=== PATIENT | male | born 1935 | race Two or more races ===

== ENCOUNTER 2017-11-18 16:21 | Observation (INO) | payer OTHER ==
[~2017-11-18] VITALS: Ht 175.3 cm; Wt 90.7 kg
[~2017-11-18 16:21] MED LIST: ASPI-231 PO; ATOR20TA50 PO; CAR3125T PO; INSULIN; METFORMIN; NITR0.4S29 SL
[2017-11-18 17:41] LABS: Basophils # (auto) 0 uL; Eosinophils # (auto) 0 uL; Lymphocytes # (auto) 0.4 uL
[2017-11-18 17:43] LABS: Basophils % (auto) 0.4 % (0.0-2.0); Hematocrit 31.9 % (41.0-53.0); Hemoglobin 10.3 g/dL (13.5-17.5); Lymphocytes % (auto) 5.6 % (10.0-50.0); Mean Corpuscular Hemoglobin 23.9 pg (28.0-32.0); Mean Corpuscular Hgb Conc. 32.2 g/dL (32.0-36.0); Mean Corpuscular Volume 74.2 fL (80.0-100.0); Monocytes # (auto) 0.9 uL; Monocytes % (auto) 12.2 % (0.0-12.0); Neutrophils # (auto) 6.3 uL; Neutrophils % (auto) 81.8 % (37.0-80.0); Platelet Count (auto) 177 10^3/uL (140-450); White Blood Cell 7.7 10^3/uL (4.4-10.8)
[2017-11-18 18:03] LABS: Albumin 3.1 g/dL (3.4-5.0); BUN/Creatinine Ratio 20.8; Bilirubin, Total 1.1 mg/dL (0.2-1.0); Calcium 9.1 mg/dL (8.5-10.1); Magnesium 2.2 mg/dL (1.6-2.6); Potassium 3.1 mmol/L (3.5-5.1); Total Protein 7.3 g/dL (6.4-8.2)
[2017-11-18] MEDS ORDERED: SODIUM CHLORIDE 0.9% 1,000 ML IVB ONE (19:38)
[2017-11-18] MEDS ORDERED: MORPHINE SULFATE INJECTION 1 ML ONE (19:43)
[2017-11-18] MEDS ORDERED: ONDANSETRON HCL 4 MG/2 ML VIAL IV ONE (19:45)
[2017-11-18] MEDS ORDERED: MORPHINE SULFATE 4 MG/ML SYR/VIAL IV ONE (19:45)
[2017-11-18] MEDS ORDERED: POTASSIUM CHL 10% (20 MEQ/15ML) 15ml ORAL SOLN PO ONE (19:45)
[2017-11-18 20:44] LABS: Urine Bacteria NONE SEEN /hpf (None Seen); Urine Blood Negative /uL (Negative); Urine Hyaline Cast FEW /lpf (0 - 2); Urine Specific Gravity 1.011 (1.001-1.035); Urine WBC <1 /hpf (0 - 3)
[2017-11-18 23:05] LABS: Prothrombin Time 74.3 sec (9.37-12.3)
[2017-11-18 23:15] LABS: INR 6.69 (0.9-1.15)
[2017-11-18 23:16] LABS: Partial Thromboplastin Time 72.5 sec (22.64-33.71)
[2017-11-18] MEDS ORDERED: PHYTONADIONE (VIT K)10 MG/ML 1ML VIAL SUBCUT ONE (23:30)
[2017-11-19 00:55] VITALS: BP 101/63
== END 2017-11-19 02:03 | disposition short-term general hospital (02) | DRG 312 ==
LOC: EDBD 16:21 → ER 16:25 → OVERFLOW 19:41 → ER 11-19 02:03
PROVIDERS: ADMIT Family Medicine; ATTEND Family Medicine
DX: R55 Syncope and collapse (principal); E11.22 Type 2 diabetes mellitus with diabetic chronic kidney disease; I48.91 Unspecified atrial fibrillation; D50.9 Iron deficiency anemia, unspecified; E87.6 Hypokalemia; E78.5 Hyperlipidemia, unspecified; I12.9 Hypertensive chronic kidney disease with stage 1 through stage 4 chronic kidney disease, or unspecified chronic kidney disease; K21.9 Gastro-esophageal reflux disease without esophagitis; I25.10 Atherosclerotic heart disease of native coronary artery without angina pectoris; N18.3 Chronic kidney disease, stage 3 (moderate); Z95.0 Presence of cardiac pacemaker; Z95.1 Presence of aortocoronary bypass graft; R74.8 Abnormal levels of other serum enzymes
CPT/HCPCS: 36415; 70450; 71045; 72192; 80053; 81001; 82550; 83735; 84484; 85025; 85610; 85730; 93005; 96361; 96372; 96374; 96376; 99285; G0378; J2270; J3430